=== PATIENT | female | born 1960 | race Two or more races ===

== ENCOUNTER → 2016-07-19 | Outpatient (CLI) | payer MEDICAID | LOC: BRMIMAGING 12:20 | DX: Z12.31 Encounter for screening mammogram for malignant neoplasm of breast (principal); Z80.3 Family history of malignant neoplasm of breast | CPT/HCPCS: G0202 ==

== ENCOUNTER → 2017-02-16 | Outpatient (CLI) | payer MEDICAID | LOC: BRMIMAGING 09:20 | PROVIDERS: ATTEND Physician Assistant | DX: Z12.39 Encounter for other screening for malignant neoplasm of breast (principal); N64.4 Mastodynia; Z80.3 Family history of malignant neoplasm of breast | CPT/HCPCS: 76641-PO; G0204 ==

== ENCOUNTER → 2018-03-29 | Outpatient (CLI) | payer MEDICAID | LOC: BRMIMAGING 13:36 | PROVIDERS: ATTEND Physician Assistant | DX: Z12.31 Encounter for screening mammogram for malignant neoplasm of breast (principal); Z80.3 Family history of malignant neoplasm of breast ==